=== PATIENT | female | born 1955 | race Caucasian/White ===

== ENCOUNTER 2021-04-17 14:26 | Emergency (ER) | payer OTHER ==
[~2021-04-17] VITALS: Ht 167.6 cm; Wt 74.8 kg
[2021-04-17 14:43] VITALS: BP 176/109
== END 2021-04-17 16:24 | disposition left against medical advice (07) ==
LOC: ER 14:28
DX: I10 Essential (primary) hypertension (principal); Z53.21 Procedure and treatment not carried out due to patient leaving prior to being seen by health care provider